=== PATIENT | male | born 1955 | race Caucasian/White ===

== ENCOUNTER 2016-12-02 17:32 | Inpatient (IN) | payer MEDICARE ==
[~2016-12-02] VITALS: Ht 182.9 cm; Wt 95.5 kg
[~2016-12-02 17:32] MED LIST: ATARAX-DPS25 MG PO; DESYREL DPS100 MG PO; FLAGYL-DPS500 MG PO; FOLVITE-DPS1 MG PO; GLUCOPHAGE1000 MG PO; HYTRIN2 MG PO; KLOR-CON M2020 ME1 PO; LEVEMIR100 UNIT/1 SQ; LIPITOR DPS40 MG PO; LOPRESSOR DPS50 MG PO; MAG-OX400 MG PO; NALTREXONE HCL50 MG PO; PEPCID DPS20 MG PO; REMERON DPS15 MG PO; SELENIUM SULFI120 ML TP; TYLENOL DPS325 MG PO; VITAMIN B1100 MG PO; VITAMIN D-32000 UNI1 PO; ZOFRAN4 MG PO; [UNRECOGNIZED DRUG - OTHER] PR
--- NOTE | 2016-12-03 19:09 | ER ---
ADMIT: 12/02/2016 RM/LOC: 523 [facility] MR#: [id number] [address] [address] GREGORY GOTTI [address] [place] [address] Emergency Room Report SEX: M AGE: 61 : 1955 DATE: 12/02/2016 ADDENDUM: Please refer to the main H and P and main dictation for the more complete history and physical examination. The patient was signed out to me by Margi Urrutia. The patient is a 61-year-old male with a history of hypertension, diabetes, PTSD, bipolar, who is noncompliant with the medication, was brought to the ER because over the last 2 weeks, the patient had generalized weakness and was practically bed-bound and could not move around at home. The patient was noncompliant with all his medications. In the ER, the patient had elevated lactic acid, sepsis workup was started and the patient received IV fluids and 1st dose of antibiotics. The patient had thrombocytopenia with platelet of 18, and also severe hypokalemia and received potassium and magnesium in the ER. A CK was normal. On the physical examination, the patient did not have any focal neurological deficit. [facility] at the [facility]. A chest x-ray did not show any infection or infiltration. The patient was admitted for further followups and treatments of generalized weakness, thrombocytopenia, hypokalemia, medication noncompliance. Esau Woodard MD/ richard JOB #: [id number] CC: Bhavin Leon MD, Attending Physician . [facility], [facility] Physician
[2016-12-09] MEDS ORDERED: ASA CHILDREN'S81 MG PO (11:37)
[2016-12-09] MEDS ORDERED: PLAVIX75 MG PO (11:38)
[2016-12-09] MEDS ORDERED: VITAMIN D-32000 UNI1 PO (11:38)
[2016-12-09] MEDS ORDERED: LIPITOR DPS20 MG PO (11:38)
[2016-12-09] MEDS ORDERED: FOLVITE-DPS1 MG PO (11:39)
[2016-12-09] MEDS ORDERED: REMERON DPS30 MG PO (11:39)
[2016-12-09] MEDS ORDERED: LOPRESSOR DPS50 MG PO (11:39)
[2016-12-09] MEDS ORDERED: FLOMAX DPS0.4 MG PO (11:40)
[2016-12-09] MEDS ORDERED: VISTARIL-DPS50 MG PO (11:40)
[2016-12-09] MEDS ORDERED: PROTONIX40 MG PO (11:40)
[2016-12-09] MEDS ORDERED: THIAMINE HCL100 MG PO (11:40)
--- NOTE | 2016-12-12 08:00 | CO ---
ADMIT: 12/02/2016 RM/LOC: 523 [facility] MR#: [id number] [address] [address] GREGORY GOTTI [address] [place] [address] Consultation SEX: M AGE: 61 : 1955 DATE OF CONSULTATION: 12/04/2016 ATTENDING PHYSICIAN: Bhavin Leon MD CONSULTING PHYSICIAN: Yunier Licea MD REASON FOR CONSULTATION: Gross hematuria. HISTORY OF PRESENT ILLNESS: The patient is a pleasant 61-year-old, white male, who seems somewhat confused and is not a very good historian. He was admitted with falls, weakness now with hyperbilirubinemia, some concern for liver failure, thrombocytopenia. The patient does have an indwelling Toribio catheter. He cannot really tell me why that was placed. He thinks it might have even been there before he got to the hospital, although I do not have any documentation to this effect. Nursing staff yesterday noted some hematuria and some passage of small clots today. Otherwise, the catheter has been draining fine. He does have an indwelling 22-Congolese 3-way Toribio catheter. The patient denies any discomfort with the catheter at the present time. He did have a urinalysis at the time of admission which demonstrated a pH of 6.5, 6 white cells, 21 red cells, otherwise clear. Urine culture at that time was negative. The patient has had a CT scan of the upper tracts in August 2016 which ruled out stone, mass, or hydronephrosis. He did have an ultrasound during this hospitalization which demonstrates no evidence of renal mass or hydronephrosis. The patient states at baseline, he may have some obstructive voiding symptoms, voids with a decreased force of stream. Denied any significant urinary urge-related incontinence. Did have nocturia typically x5. He has been started on Flomax during this hospitalization. Denies ever taking any medication for his prostate, has not had past surgical therapy involving the lower urinary tract. The patient's platelet count today is 14, INR is elevated at 1.5. Serum creatinine is normal at 0.6. PAST MEDICAL HISTORY: Significant for: 1. COPD. 2. Gastroesophageal reflux disease. 3. Insomnia. 4. Rosacea. 5. History of alcoholism. 6. History of pancytopenia noted on previous H and P from 2016. 7. Depression. 8. Bipolar disorder. 9. Posttraumatic stress disorder. 10.Hyperlipidemia. 11.Distal urethral stricture which obviously is not an issue secondary to the fact that he has a 22-Congolese Toribio catheter in place. 12.History of hepatitis. 13.Hypertension. 14.Dementia. ADMIT: 12/02/2016 RM/LOC: 523 [facility] MR#: [id number] [address] [address] [address] GOTTI [address] [place] [address] Consultation SEX: M AGE: 61 : 1955 MEDICATIONS: At present include: 1. Flomax 0.4 mg p.o. daily. 2. Folvite. 3. Vitamin B. 4. Sliding scale insulin. 5. Minocycline. ALLERGIES: NO KNOWN DRUG ALLERGIES. PAST SURGICAL HISTORY: The patient denies any past surgical history involving the urinary tract. ALLERGIES: HE DOES NOT TOLERATE SULFA DRUGS. SOCIAL HISTORY: The patient does live independently. He does not have a significant history of tobacco use. He does have a history of alcoholism. PHYSICAL EXAMINATION: GENERAL: The patient is somewhat confused, but pleasant and conversant. VITAL SIGNS: Stable. ABDOMEN: Otherwise soft without suprapubic mass or tenderness. No guarding or rebound. BACK: No costovertebral angle tenderness. GENITOURINARY: The patient's glans and shaft without plaques or lesions. Testes descended bilaterally without mass or tenderness. Indwelling 22-Congolese Toribio catheter draining damien-colored urine. No evidence of significant gross hematuria at this time. Testes are descended bilaterally without mass or tenderness. RECTAL: Demonstrates a 20 g prostate, smooth without nodularity, induration, or asymmetry. LABORATORY DATA: Serum creatinine 0.6, INR 1.5, platelet count 14. Urinalysis as stated above. Urine culture negative. Radiology CT scan and ultrasound as stated above. PROCEDURE: The patient's Toribio catheter was irrigated with sterile water. This flushes easily. No evidence of significant hematuria. Two small clots obtained. Catheter was left to gravity drainage. ASSESSMENT: 1. Benign prostatic hypertrophy. This is based on patient's historical symptoms. We will continue Flomax, voiding trial when the patient is strong or weakness has resolved as desired by Dr. Leon's team. 2. Hematuria likely secondary to catheter irritation and thrombocytopenia with mildly elevated INR. Nonetheless, catheter is draining fine. No significant hematuria at the present time. We can evaluate this further ADMIT: 12/02/2016 RM/LOC: 523 [facility] MR#: [id number] [address] [address] GREGORY GOTTI [address] [place] [address] Consultation SEX: M AGE: 61 : 1955 on an outpatient basis with a cystoscopy. Would not recommend anything in the short-term. He has had normal upper tract imaging with a contrasted CT scan in August and another renal ultrasound during this hospitalization. RECOMMENDATIONS: 1. Flush Toribio catheter with sterile H2O as needed. 2. Continue Flomax. 3. Voiding trial when primary care team feels appropriate. 4. Follow up with Urology two weeks after discharge. 5. Would consider covering with a low-dose antibiotic. This can be determined by Dr. Leon. Yunier Licea MD/ richard JOB #: [id number] CC: Bhavin Leon MD, Attending Physician [facility] Physician, Family Physician
--- NOTE | 2016-12-13 08:50 | HP ---
ADMIT: 12/02/2016 RM/LOC: 523 [facility] MR#: [id number] [facility]#: [id number] 2620 [facility] [address] [place] [address] GREGORY PATE [address] [place] [address] History and Physical SEX: M AGE: 61 : 1955 DATE OF SERVICE: 12/03/2016 HISTORY OF PRESENT ILLNESS: Mr. Pate is a 61-year-old man with past medical history significant for COPD; GERD; insomnia; alcohol dependence; mental illness including depression, anxiety, bipolar, and PTSD; hyperlipidemia; urethral stricture and nonspecific hepatitis; hypertension; and dementia, who presented to the hospital with about 6 months of weakness and falls. The patient states he has been having difficulties with balance and falling for the last 6 months or so. He states that this was then exacerbated by weakness that has been persistent over the last 1 month. He tells me that with his fall, he has easy bruising. At the same time, he has been having weakness. He also notes that he has been having difficulty swallowing. He is unable to tell me exactly what he means by difficulty swallowing. He states that he has more difficulties with solids than with liquids. He tells me that he had a scope approximately 3 months as an outpatient, where they dilated his lower part of his esophagus. He tells me that he has poor appetite with very little intake for the last month or so. He also tells me that he has blood in his urine for 1 month. This has not yet been worked up. He denied any shortness of breath or chest pain. He did have some abdominal pain from falling on a chair. He also told me that he had some lower abdominal pain that was mostly in the right and left lower quadrants. He denied any fevers or chills. He tells me that he feels like he just cannot take care himself at home. He tells me that they are not allowing let him go home. By the time I saw him, the patient had been admitted to the floor. I am unsure what his emergency room course was at this time. Please refer to his chart. PAST MEDICAL HISTORY: 1. COPD. 2. GERD. 3. Insomnia. 4. Alcohol dependence. 5. Pancytopenia. 6. Mental illness including depression, anxiety, bipolar, and PTSD. 7. Hyperlipidemia. 8. Urethral stricture. 9. Nonspecific hepatitis. 10.Hypertension. 11.Dementia. This was obtained from history and physical for a prior hospital admission on November 09, 2015. PAST SURGICAL HISTORY: He said that he has had various shoulder surgeries. He cannot recall any additional surgeries. HOME MEDICATIONS: Include: 1. Aspirin 81 mg daily. 2. Vitamin D3, 2000 units daily. ADMIT: 12/02/2016 RM/LOC: 523 [facility] MR#: [id number] [address] [address] GREGORY PATE [address] [place] [address] History and Physical SEX: M AGE: 61 : 1955 3. Lipitor 40 mg daily. 4. Plavix 75 mg daily. 5. Folic acid 1 mg daily. 6. Lopressor 12.5 mg p.o. b.i.d. 7. Remeron 30 mg at bedtime. 8. Protonix 40 mg twice daily. 9. Flomax 0.4 mg daily. 10.Vitamin 100 mg daily. 11.Vistaril 50 mg as needed. ALLERGIES: HE IS INTOLERANT TO SULFA DRUGS AND MINOCYCLINE. FAMILY MEDICAL HISTORY: He does not known his family medical history. SOCIAL HISTORY: The patient states that he is not currently using tobacco. He smokes for over 20 years. He admits to using alcohol. He states that he underwent [facility] several years [facility] the [facility], but since then has been able to manage his alcohol intake. He states that he consumes 2 to 3 drinks 2 to 3 times per week. He tells me that he does not drink any more on the weekends. He denies any illicit drug use. He was last sexually active approximately 6 weeks ago with a girlfriend from [place]. He states that he does not think that she has any sexually transmitted diseases. He states that he has not been tested for sexually transmitted disease for quite some time and has been over a year. He tells me that he was alone at home. He did have a dog but has been unable to take of the dog and so the dog is in the [facility] at this point in time. REVIEW OF SYSTEMS: Review of systems was completed for this encounter. It is negative other than stated above. PHYSICAL EXAMINATION: VITAL SIGNS: Include temperature of 99.2 Fahrenheit, heart rate of 88, respiratory rate of 18, saturating at 99% on room air, and blood pressure 152/85. GENERAL: He is alert and oriented to person, place, and seemingly the situation. He is unable to provide some exact details, but he is able to provide some estimations of time period. HEENT: Normocephalic and atraumatic. He has decreased hearing bilaterally. No hearing aids in place. His extraocular eye movements are intact. He does have some scleral injection. He has normal pink conjunctivae. His mucous membranes are moist. His nose is midline. HEART: Regular rate and rhythm. No murmurs, rubs, or gallops noted. LUNGS: Clear to auscultation bilaterally. ABDOMEN: Soft and nontender with palpation. He does have some hepatomegaly elicited on exam. No masses. He has no active bowel sounds. EXTREMITIES: He has multiple areas of large ecchymosis over his forearm as well as posterior legs. He also had ecchymosis over his posterior back pain. There is no edema. He has DAVIS hose in place. His extremities are warm and well perfused. ADMIT: 12/02/2016 RM/LOC: 523 [facility] MR#: [id number] [address] [address] GREGORY PATE [address] [place] [address] History and Physical SEX: M AGE: 61 : 1955 SKIN: He has some jaundice noted. He has multiple areas of ecchymosis as mentioned above. NEUROLOGIC: Grossly intact. He does have symmetric strength in his lower extremities. Complains of back pain with movement. PSYCH: He is alert and seems to be oriented to person and place. He does seem to get sidetracked with his speech at times, a bit tangential. His affect is fairly flat. His mood is dysthymic. Mood and affect reflect each other overall. LABORATORY DATA: He has a white count of 2.3 with normal differential, hemoglobin of 10.8, and platelets of 18. His CMP is notable for a potassium of 2.9, glucose of 131, corrected calcium of 8.2, and total bilirubin of 4.1. His alkaline phosphatase is 99, AST of 170, ALT of 41, and magnesium of 1.1. He has a procalcitonin of 0.07. Lactic acid of 2.6. Urinalysis that demonstrates bilirubin as 2+, blood with 21 red blood cells per high powered field, 6 white blood cells per high powered field, and 4 hyalin casts per low powered field. His INR is 1.36 and random urine sodium was 21. Blood cultures were obtained early in the morning of December 03 and are no growth to date. IMAGING: Chest x-ray demonstrated no significant change from previous. There are no acute findings. Cardiac silhouette and pulmonary vasculature are within normal limits. There are no focal infiltrates. He does have chronic elevation, although diaphragm noted. EKG reveals sinus rhythm with nonspecific intraventricular conduction delay with minimal ST depression in inferiorly leads. ASSESSMENT AND PLAN: Mr. Pate is a 61-year-old man with significant past medical history and multiple comorbidities. He is hospitalized for weakness and falls and a failure to thrive sort of picture at home. 1. Weakness with recurrent falls. I suspect that this is multifactorial. Could be related to his decreased p.o. intake as well as decreased activity. We will evaluate his spine given his temperature with an MRI. We will have him be assessed by PT/OT. We will continue to monitor his progress in this area. Differential diagnosis includes, but not limited to arthritis, spinal abscess, radiculopathy. 2. Systemic inflammatory response syndrome, possibly sepsis. The patient meets criteria for systemic inflammatory response syndrome with an elevated heart rate in the 90s at times and a white count less than 4000. Source is unknown, so technically meets systemic inflammatory response syndrome at this time. He does have some lactic acidosis, but it is not greater than or equal to 4 and his systolic blood pressure is not less than 90. The patient has blood cultures as well as urine cultures in the past. His procal is 0.07, which does not indicate bacterial etiology. We will continue to monitor the patient. He has received fluids at this time. 3. Pancytopenia. Etiology of this pancytopenia is unknown at this time. We will obtain another CBC with differential, peripheral blood smear, ADMIT: 12/02/2016 RM/LOC: 523 [facility] MR#: [id number] [address] [address] GREGORY PATE [address] [place] [address] History and Physical SEX: M AGE: 61 : 1955 reticulocyte count, as well as B12, folate, iron, TIBC, transferrin, and ferritin levels. The patient is agreeable to hepatitis C and HIV screening. We will obtain a CMP, CBC, and INR in the morning. Given his elevated bilirubin, we will also obtain fractionation of the bilirubin. We will consider the need for Hematology, Oncology consult for assistance with further workup. 4. Hematuria. It is unclear why the patient has been having blood in his urine for the last month. He states that he has not had worked up for this issue previously. Given that his gross hematuria without evidence of renal failure, we will obtain a Urology consult. 5. Hypokalemia. We will replete with 50 mEq p.o. and 40 mEq IV with recheck and repletion as needed. 6. Dysphagia. We will consult Speech Language Pathology for evaluation and consideration of a barium esophagram. 7. Remainder of his chronic conditions, we will discontinue the aspirin at this time given his hematuria, and we will continue the folic acid with Plavix as well as the Lipitor and vitamin D3. We will hold the Remeron at this time. We will continue the Flomax and the thiamine. The patient will be continued to monitor for progression and improvement. Mara Fallon MD Resident / Bhavin Leon MD / dionl JOB #: [id number] CC: Bhavin Leon MD, Attending Physician [facility] Physician, Family Physician
--- NOTE | 2016-12-26 10:58 | CO ---
ADMIT: 12/02/2016 RM/LOC: 523 [facility] MR#: [id number] [facility]#: [id number] [address] [address] [place] [id number] Consultation SEX: M AGE: 61 : 1955 DATE OF CONSULTATION: 12/05/2016 ATTENDING PHYSICIAN: Bhavin Leon MD CONSULTING PHYSICIAN: Kirk Holley MD REASON FOR CONSULTATION: Pancytopenia of unexplained etiology. HISTORY AND PHYSICAL: Mr. Pate is a 61-year-old, pleasant man with a history of COPD, GERD, insomnia, alcohol abuse, alcohol dependence, mental illness including depression, anxiety, bipolar, PTSD, nonspecific hepatitis, dementia, was admitted due to weakness and fall, and in the further workup, he was found to have pancytopenia. His hemoglobin count was 10.6 with platelet of 27 and WBC of 4.2, he was having bladder hemorrhage and he was on bladder irrigations for that. His blood counts look pretty sick even though the patient was feeling okay. No other problems. No fever. No diarrhea. PAST MEDICAL HISTORY: As I mentioned, dementia, depression, anxiety, alcohol dependence, COPD, insomnia, hyperlipidemia, history of hepatitis, and hypertension. MEDICATIONS: 1. Aspirin. 2. Vitamin D3. 3. Lopressor. 4. Remeron. 5. Protonix. 6. Flomax. Please see the medication list for complete. ALLERGIES: HE IS ALLERGIC TO SULFA DRUG. FAMILY HISTORY: High blood pressure in the family. No history of cancer. SOCIAL HISTORY: The patient states that he is currently not using alcohol, but I think he is still taking alcohol and he is alcoholic dependent. He currently does not smoke. No IV illicit drug use. REVIEW OF SYSTEMS: GENERAL: Not in acute distress. RESPIRATORY: No shortness of breath. CARDIOVASCULAR: No chest pain. GENITOURINARY: Severe and hemorrhagic bladder, lot of bleeding, he is on bladder irrigation. ENDOCRINOLOGY: No polyuria. No polydipsia. NUTRITION: Adequate. INFECTION: No fever. SKIN: No rash. NEUROLOGIC: Awake, alert, oriented x3. CARDIOVASCULAR: No chest pain. ADMIT: 12/02/2016 RM/LOC: 523 [facility] MR#: [id number] [address] [address] [place] [address] Consultation SEX: M AGE: 61 : 1955 PHYSICAL EXAMINATION: VITAL SIGNS: Temperature 99.5, pulse 107, respirations 16, and blood pressure 133/87. HEENT: Normocephalic and atraumatic. LUNGS: Clear. HEART: S1 and S2 heard. Regular rate and rhythm. ABDOMEN: Soft, nontender, and nondistended. Positive bowel sounds. EXTREMITIES: No edema. NEUROLOGICAL: Awake, alert, and oriented x3. SKIN: No rash. LYMPHATICS: No abnormal lymph nodes palpated. LABORATORY DATA: WBC is 4.2, hemoglobin is 10.6, platelets 27. His creatinine is 0.6 with total bilirubin 6 with direct bilirubin 2.8, and AST 1.4. Magnesium 1.1. CT scan of the abdomen and pelvis shows diffuse fatty infiltration of the liver with cholelithiasis. IMPRESSION AND RECOMMENDATIONS: Mr. Pate is a 61-year-old pleasant gentleman with multiple medical problems, and also history of alcohol dependence, was admitted to the hospital due to weakness and fall and on the workup was found to have pancytopenia with severe thrombocytopenia. Severe thrombocytopenia with 27 and bladder hemorrhage. We therefore need to make sure that he gets transfused and rule out DIC. He does also have coagulopathy with an INR of more than 1.5, and therefore, DIC workup is very important and we need to make sure he does not have DIC. His hemoglobin count is stable, but could fall, because he is having severe bladder hemorrhage. He also had a history of fall, dementia, depression, anxiety, and alcohol dependence. PLAN: We need to transfuse him 2 units of platelets now as well as 2 units of FFP today. We need to discontinue Tylenol completely. We will check LDH, haptoglobin level, fibrinogen level, D-dimer level as well as PT/INR tomorrow. ADMIT: 12/02/2016 RM/LOC: 523 [facility] MR#: [id number] [address] [address] [place] [address] Consultation SEX: M AGE: 61 : 1955 I will also continue folic acid 1 mg once a day which is low. Vitamin K 5 mg p.o. x1 dose. We will check his direct Eli test as well as retic count. We will check his all his labs again tomorrow with CBC and CMP. If he continues to bleed more, then we need to transfuse more aggressively. I think after bringing his platelet count and decreasing his coagulopathy, his bleeding should stop. I have talked to the patient in detail about the workup. If the culprit of DIC is cholecystitis or cholelithiasis, then probably in the future, he may benefit from removing the gallbladder, because he does have obstructive liver disease due to increase in bilirubin. Thank you for your consultation and opportunity in taking care of the patient. I will follow the patient with you. Kirk Holley MD/ richard JOB #: [id number] CC: Bhavin Leon MD, Attending Physician [facility] Physician, Family Physician
--- NOTE | 2016-12-28 08:54 | DS ---
ADMIT: 12/02/2016 RM/LOC: [facility] MR#: [id number] [address] [place] [address] General Discharge Summary SEX: M AGE: 61 : 1955 ADMISSION DATE: 12/02/2016 DISCHARGE DATE: 12/08/2016 FINAL DIAGNOSES: 1. Weakness, falls. 2. Urinary tract infection with sepsis and pancytopenia, hematuria. 3. Hypokalemia. 4. Back pain. 5. Falls. REASON FOR ADMISSION: This is a 61-year-old gentleman, who presented with weakness. He has some underlying psych disease. He was found to have very low platelet count as well as question about history of alcohol and liver disease. See dictated H and P for further details. HOSPITAL COURSE: The patient was admitted. Initially, he had some elevated temperatures and difficulty walking. He had a hard time giving history about whether this was a longstanding or actually relatively new. We did x-rays of his back and ultimately an MRI, did not show any epidural abscesses or acute findings for his weakness. We treated him, felt that he had some blood in his urine and seen by Urology, which opted for outpatient management. He continued to have some pancytopenia and elevated liver tests, had some hyponatremia and hypokalemia. There was question about whether he had cholecystitis, but he had no acute abdominal pain. He gradually improved. He had some CBI placed, which did clean out his bladder. CT scan of his abdomen and pelvis was ultimately unremarkable. He was seen by Oncology, and he was given some platelets. Workup for the pancytopenia resumed. He continued to be pretty weak. By the 15, he was feeling better, but sore from the falls. It was not too much new that we could do. He was set up to be discharged as he was going to skilled care for continued rehabilitation and monitoring of his labs. DISCHARGE MEDICATIONS: See his discharge medication list for that list. No anticoagulation was given because of his low platelet count and anemia. Bhavin Leon MD/ richard JOB #: [id number] CC: Bhavin Leon MD, Attending Physician . [facility]
== END 2016-12-08 15:35 | DRG 872 ==
LOC: ER 17:32 → 5MS 22:56
PROVIDERS: ADMIT Internal Medicine
PROC: 30233R1 Transfusion of Nonautologous Platelets into Peripheral Vein, Percutaneous Approach (ICD-10-PCS; principal; 2016-12-05)
PROC: 30233K1 Transfusion of Nonautologous Frozen Plasma into Peripheral Vein, Percutaneous Approach (ICD-10-PCS; 2016-12-06)
DX: A41.9 Sepsis, unspecified organism (principal); D61.818 Other pancytopenia; E87.2 Acidosis; F03.90 Unspecified dementia, unspecified severity, without behavioral disturbance, psychotic disturbance, mood disturbance, and anxiety; E87.1 Hypo-osmolality and hyponatremia; N39.0 Urinary tract infection, site not specified; R65.20 Severe sepsis without septic shock; E87.6 Hypokalemia; R31.0 Gross hematuria; N39.41 Urge incontinence; K76.9 Liver disease, unspecified; I10 Essential (primary) hypertension; E11.9 Type 2 diabetes mellitus without complications; K80.20 Calculus of gallbladder without cholecystitis without obstruction; M47.816 Spondylosis without myelopathy or radiculopathy, lumbar region; E78.5 Hyperlipidemia, unspecified; F31.9 Bipolar disorder, unspecified; F43.10 Post-traumatic stress disorder, unspecified; N40.1 Benign prostatic hyperplasia with lower urinary tract symptoms; J44.9 Chronic obstructive pulmonary disease, unspecified; K21.9 Gastro-esophageal reflux disease without esophagitis; G47.00 Insomnia, unspecified; L71.9 Rosacea, unspecified; F10.20 Alcohol dependence, uncomplicated; Z91.14 Patient's other noncompliance with medication regimen; Z86.19 Personal history of other infectious and parasitic diseases; Z79.82 Long term (current) use of aspirin; Z87.891 Personal history of nicotine dependence

== ENCOUNTER 2016-12-23 17:36 | Emergency (ER) | payer MEDICARE ==
[~2016-12-23 17:36] MED LIST changes: +ASA CHILDREN'S81 MG PO; +FLOMAX DPS0.4 MG PO; +LIPITOR DPS20 MG PO; +PLAVIX75 MG PO; +PROTONIX40 MG PO; +REMERON DPS30 MG PO; +THIAMINE HCL100 MG PO; +VISTARIL-DPS50 MG PO
--- NOTE | 2017-01-11 15:51 | ER ---
ADMIT: 12/23/2016 RM/LOC: [facility] MR#: [id number] [address] [place] [id number] Emergency Room Report SEX: M AGE: 61 : 1955 DATE: 12/23/2016 HISTORY OF PRESENT ILLNESS: Tad is a 61-year-old male, who lives at [place]. He complained of dizziness. He even went to Dr. Leon's office today, was seen by provider and released home, but he continued with the dizziness. He was finally told to stop his Lopressor, which he did but he still came to the emergency room for further evaluation as he still was feeling pretty dizzy. REVIEW OF SYSTEMS: He says his dizziness today with sense of movement. He feels like he is falling. Review of systems, positive for anxiety and depression. He tells me that usually when he gets this feeling, he gets a seizure. He does have a seizure history. PAST MEDICAL HISTORY: Includes also diabetes, atrial fibrillation, hypertension, GERD, bipolar disorder, COPD, PTSD, insomnia, pancytopenia, dementia, sleep apnea, headaches, and urethral stricture. He has had shoulder surgery. MEDICATIONS: Include: 1. Aspirin. 2. Plavix. 3. Flomax. 4. Lipitor. 5. Lopressor. 6. Vitamin D. 7. Magnesium. 8. NovoLog. ALLERGIES: NO ALLERGIES. SOCIAL HISTORY: He has had a history of alcohol consumption on a regular basis. PHYSICAL EXAMINATION: GENERAL: On examination, very pleasant, alert and oriented gentleman. VITAL SIGNS: Blood pressure is 111/61 with a heart rate of 70, respirations 21, temp is 99.4, and O2 sats 97%. He is alert. HEENT: Normal inspection. TMs normal. NECK: Supple. RESPIRATIONS: No distress. EXTREMITIES: Well perfused. No edema noted. We did do orthostatic blood pressure and he failed it miserably. Blood pressure variation more than 20 points. He did get fluid hydration and bolus. LABORATORY DATA: His labs showed a white count of 7, hemoglobin is 11, hematocrit is 33.7 with platelets of 126. His troponin is 0.015. Glucose is ADMIT: 12/23/2016 RM/LOC: ER [facility] MR#: [id number] [address] [place] [address] Emergency Room Report SEX: M AGE: 61 : 1955 118. GFR 71 and AST 79. He was unable to give us the sample of urine, but none of his symptoms indicate a possible infection. His EKG was normal sinus rhythm at 70. He is much improved with the IV fluids. Reports dizziness is gone. CLINICAL IMPRESSION: Dizziness, mild dehydration, and orthostatic blood pressure. The patient was released to [facility]. Instructions given to follow up with Dr. Leon and did not take his Lopressor until he communicates again with Dr. Leon for further instructions regarding his blood pressure medication. JEREMY Pardo / Kevin Dent MD / modl JOB #: [id number] CC: Kevin Dent MD, Attending Physician [facility] Physician, Family Physician
== END 2016-12-23 19:40 | disposition home or self-care (01) ==
LOC: ER 17:36
DX: E86.0 Dehydration (principal); R42 Dizziness and giddiness; I95.1 Orthostatic hypotension; E11.9 Type 2 diabetes mellitus without complications; I10 Essential (primary) hypertension; F31.9 Bipolar disorder, unspecified; J44.9 Chronic obstructive pulmonary disease, unspecified; G40.909 Epilepsy, unspecified, not intractable, without status epilepticus; F03.90 Unspecified dementia, unspecified severity, without behavioral disturbance, psychotic disturbance, mood disturbance, and anxiety; Z79.4 Long term (current) use of insulin; Z79.82 Long term (current) use of aspirin; Z79.899 Other long term (current) drug therapy; Z79.01 Long term (current) use of anticoagulants

== ENCOUNTER 2017-04-07 10:58 | Emergency (ER) | payer MEDICARE, MEDICAID ==
--- NOTE | 2017-04-08 09:15 | ER ---
ADMIT: 04/07/2017 RM/LOC: ER [facility] MR#: [id number] [address] [place] [address] Emergency Room Report SEX: M AGE: 62 : 1955 DATE: 04/07/2017 ADDENDUM: A 62-year-old, white male, coming from [facility] with nosebleed. Essentially, he has a nasal apparatus for his CPAP and it is drying out his mucous membranes. He has a clot in his left nares, so the bleeding is stopped. We are going to have him switch back to the mask instead of the nasal apparatus. I did speak to Dr. Leon about this and he agrees. CONDITION ON DISCHARGE: Good. Jai Cisneros MD/ richard JOB #: [id number] CC: Jai Cisneros MD, Attending Physician Bhavin Leon MD, Family Physician
== END 2017-04-07 13:50 | disposition home or self-care (01) ==
LOC: ER 10:58
DX: R04.0 Epistaxis (principal); E11.9 Type 2 diabetes mellitus without complications; J44.9 Chronic obstructive pulmonary disease, unspecified; Z79.899 Other long term (current) drug therapy